=== PATIENT | male | born 1980 ===

== ENCOUNTER 2023-07-14 14:07 | Outpatient (CLI) | payer OTHER | END 2023-07-14 14:16 | disposition home or self-care (01) | LOC: MRI 14:07 | PROVIDERS: ATTEND Pain Medicine Interventional Pain Medicine | DX: M54.2 Cervicalgia (principal) | CPT/HCPCS: 72141 ==

== ENCOUNTER 2023-07-21 07:27 | Outpatient (CLI) | payer OTHER | END 2023-07-21 07:38 | disposition home or self-care (01) | LOC: MRI 07:27 | PROVIDERS: ATTEND Pain Medicine Interventional Pain Medicine | DX: M54.50 Low back pain, unspecified (principal); S39.82XA Other specified injuries of lower back, initial encounter; M43.26 Fusion of spine, lumbar region | CPT/HCPCS: 72149 ==